=== PATIENT | female | born 1955 | race Caucasian/White ===

== ENCOUNTER 2022-09-27 08:32 | Outpatient (CLI) | payer MEDICARE, OTHER, SELFPAY | END 2022-09-27 08:33 | disposition home or self-care (01) | LOC: NFLDREF 12:37 | PROVIDERS: PCP Internal Medicine; Referring Provider Internal Medicine; Visit Provider Internal Medicine | DX: M85.80 Other specified disorders of bone density and structure, unspecified site (principal); E78.5 Hyperlipidemia, unspecified | CPT/HCPCS: 80061; 82306 ==